=== PATIENT | female | born 1995 | race Caucasian/White ===

== ENCOUNTER → 2017-07-01 | Outpatient (CLI) | payer OTHER ==
[2014-03-05 14:39] VITALS: BMI 19.1
[~2017-07-01] MED LIST: ACET-1966 PO; AMOX-559 PO; AZIT-1 PO; AZIT-18 PO; BENZ100C4 PO; CEFU250T11 PO; CEFU500T50 PO; DEXT30SU27 PO; FLUT16SP20 NS; HYDR-385 PO; HYDR2TAB74 PO; KET10 PO; KETO-104 PO; LEVO-85 PO; LOR5 PO; LOR5/325 PO; MECL-111 PO; MEDR150D IM; METH4TAB66 PO; MIRT-17 PO; MOMR ENA; ONDA4TAB PO; OXYC-856 PO; PRED20TA6 PO; PROM-110 PO; SULF-198 PO; VALA100062 PO
--- NOTE | 2017-07-01 16:38 | RADIOLOGY IMAGING REPORT ---
FACILITY: [facility] - [place] PATIENT NAME: Starla Rodriguez : 1995 MR: [id number] V: [id number] EXAM DATE: ORDERING PHYSICIAN: JUNIOR URENA TECHNOLOGIST: Location: [facility] Patient: Starla Rodriguez : 1995 Visit/Account:[id number] Date of Sevice: 07/01/2017 Exam type: THORACIC SPINE 2 VIEW History: Chronic back pain Comparison: None. Findings: AP and lateral views of the thoracic spine were submitted for interpretation. There is no evidence of acute fractures or subluxations in the thoracic spine. Several Schmorl's nod es are noted in the midthoracic spine. There suggestion of mild disc space narrowing at T11-12. IMPRESSION: 1. Suggestion of mild disc space narrowing at T11-12. Report Dictated By: Lian Pope MD at 07/01/2017 4:33 PM Report E-Signed By: Lian Pope MD at 07/01/2017 4:34 PM WSN:[email or web address]
--- NOTE | 2017-07-01 16:39 | RADIOLOGY IMAGING REPORT ---
[place] [facility] [place] NAME: Starla Rodriguez : 1995 MR: [id number] V: [id number] EXAM DATE: ORDERING PHYSICIAN: JUNIOR URENA TECHNOLOGIST: Location: [facility] [place] Patient: Starla Rodriguez : 1995 Visit/Account:[id number] Date of Sevice: 07/01/2017 Exam type: LUMBAR SPINE COMP W/FLEX/EXT History: Chronic back pain Comparison: None. Findings: AP and lateral views of the lumbar spine demonstrate a gentle levoconvex scoliosis at the thoracolumb ar junction with the apex of the curvature at the approximate L1-2 level. There is no evidence of ac jacki fractures or subluxations. The disc spaces appear relatively well-preserved. IMPRESSION: 1. Gentle levoconvex scoliosis at the thoracolumbar junction as described Report Dictated By: Lian Pope MD at 07/01/2017 4:32 PM Report E-Signed By: Lain Ppoe MD at 07/01/2017 4:33 PM WSN:[email or web address]
== END ==
LOC: RAD 15:26
PROVIDERS: ATTEND Chiropractor
DX: M41.85 Other forms of scoliosis, thoracolumbar region (principal); M51.44 Schmorl's nodes, thoracic region
CPT/HCPCS: 72070; 72114